=== PATIENT | male | born 2000 | race Two or more races ===

== ENCOUNTER 2023-12-25 21:16 | Emergency (ER) | payer MEDICAID, OTHER ==
[~2023-12-25] VITALS: Ht 190.5 cm; Wt 152.0 kg
[2023-12-26 02:23] VITALS: BP 151/103; PULSE 111; RESP 16; TEMP 99.8; O2SAT 97
[2023-12-26] MEDS: IBUPROFEN 800 MG TAB PO ONE (03:00)
[2023-12-26] MEDS ORDERED: CYCL-837 PO (03:01)
[2023-12-26] MEDS ORDERED: IBUP-1456 PO (03:01)
== END 2023-12-26 04:44 | disposition home or self-care (01) ==
LOC: ER 21:16
DX: S39.012A Strain of muscle, fascia and tendon of lower back, initial encounter (principal); S90.112A Contusion of left great toe without damage to nail, initial encounter; Z79.1 Long term (current) use of non-steroidal anti-inflammatories (NSAID); Z79.899 Other long term (current) drug therapy; W01.0XXA Fall on same level from slipping, tripping and stumbling without subsequent striking against object, initial encounter; Y93.89 Activity, other specified; Y92.89 Other specified places as the place of occurrence of the external cause; Y99.8 Other external cause status
CPT/HCPCS: 72100; 73630